=== PATIENT | male | born 1965 | race Caucasian/White ===

== ENCOUNTER → 2016-12-02 | Outpatient (CLI) | payer OTHER ==
--- NOTE | 2016-12-02 20:17 | DRAGON STRESS TEST REPORT ---
EXERCISE TREADMILL CARDIOLITE STRESS TEST USING SINGLE PHOTON EMMISION COMPUTERIZED TOMOGRAPHIC. DATE OF PROCEDURE: December 02, 2016 INDICATION : Chest pain CARDIAC RISK FACTORS: Tobacco abuse RESTING EKG: Sinus rhythm without any baseline ST-T wave changes STRESS EKG: No significant changes noted with exercise but Suboptimal heart rate response and blood pressure response REASON FOR TERMINATION: Leg discomfort and shortness of breath PROCEDURE REPORT: Baseline heart rate 78 beats per minute with blood pressure of 138/82. Patient had no significant complaints. Patient was exercised on a standard Steve protocol. Patient exercised for a total of 6 minutes and 01 second. Exercise was stopped because of right leg discomfort and also shortness of breath. Patient achieved a peak heart rate of 118 bpm which is 69 % of predicted maximum. Peak blood pressure was noted to be 150/80. Electrocardiogram obtained during exercise and at peak exercise did not show any significant ST-T wave changes. CONCLUSIONS: No significant ST segment changes noted but had marked suboptimal heart rate and also blood pressure response. Double product was also inadequate. NUCLEAR DATA: At rest the patient was given 14.36 millicuries of technetium 99 sestamibi injected intravenously. As per protocol rest gated SPECT images were obtained. At peak exercise the stress dose of 44.5 millicuries of technetium 99 sestamibi was injected intravenously, patient exercised for additional 1-2 minutes. As per protocol stress gated images were obtained. NUCLEAR INTERPRETATION: Both raw and processed data were used for interpretation. Visual, qualitative, computer-generated quantitative data was used. There was good myocardial uptake of technetium compound. Motion artifact and soft tissue attenuations were noted. Increased visceral uptake was noted. No definitive areas of transient perfusion defect noted. No definitive areas of fixed perfusion defect or scars noted. EKG gated imaging showed LV EF at 44 %, rest and stress gated EF similar visually. T. I D. ratio was 1.11. Lung heart ratio noted to be within normal limits 0.44. No significant extracardiac and abnormal radiotracer activities were noted. RV free wall uptake was noted to be WNL. IMPRESSION: Also refer to comments under nuclear interpretation. Also test results needs to be interpreted in the context of pretest probability. 1. Indeterminate nuclear stress test for ruling out ischemia or CAD. However no definitive scintigraphic myocardial ischemia, however patient had suboptimal heart rate blood pressure and double product. 2. There is no definitive scintigraphic evidence of myocardial infarction/scar. 3. EKG gated imaging shows left ejection fraction of approximately 44 %. 4. Clinical correlation requested as occasionally single vessel disease or balanced ischemia could be missed. In approximately 10% of the cases Lexiscan may not cause adequate vasodilatory stress. RECOMMENDATIONS: The test is basically indeterminate for ruling out ischemia/ CAD. Will recommend pharmacologic nuclear stress test and/or cardiac catheterization as indicated based on symptoms. Aggressive risk factor modification, medical therapy. Clinical correlation with echocardiogram derived ejection fraction. Inability to exercise by itself can lead to increased cardiovascular event risks. Consider cardiology consultation if clinically indicated. 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 [phone] [place]ITALCay[facility]
== END ==
LOC: RAD 06:43
PROVIDERS: ATTEND Family Medicine
DX: R07.9 Chest pain, unspecified (principal); I10 Essential (primary) hypertension; E78.5 Hyperlipidemia, unspecified; F17.200 Nicotine dependence, unspecified, uncomplicated
CPT/HCPCS: 93017; 78452; A9500; Q9969

== ENCOUNTER 2017-04-28 11:12 | Day surgery (SDC) | payer OTHER ==
[~2017-04-28 11:12] MED LIST: CEFAZOLIN 1 GM/D5W RTU 1 GM/50 ML RTUPB IV PRN; DEXAMETHASONE SOD PHOSPHATE INJ 4 MG/1 ML VIAL ONE; DEXTROSE 5%-1/2 NORMAL SALINE 1,000 ML IV PRN; LIDOCAINE 2% INJ-PF (20 MG/ML) 10 ML AMPUL ONE; METOCLOPRAMIDE HCL INJ/PF 10 MG/2 ML SDV ONE; ONDANSETRON HCL INJ/PF 4 MG/2 ML SDV ONE; SUCCINYLCHOLINE CHLORIDE INJ 200 MG/10 ML VIAL ONE
[2017-04-28 12:13] LABS: HEMATOCRIT 48.4 % (37.9-51.0); HEMOGLOBIN 16.4 g/dL (13.5-17.0); HGB HCT DIFFERENCE 0.8; MEAN CORPUSCULAR HEMOGLOBIN 29.8 pg (27.0-33.4); MEAN CORPUSCULAR HGB CONC 33.9 g/dL (32.0-36.0); MEAN CORPUSCULAR VOLUME 88 fl (80-97); RED BLOOD COUNT 5.51 10^6/uL (4.35-5.55); RED CELL DISTRIBUTION WIDTH 13.7 % (11.5-14.0); WHITE BLOOD COUNT 8.2 10^3/uL (4.0-10.5)
[2017-04-28 12:27] LABS: ANION GAP 12 (5-19); BLOOD UREA NITROGEN 18 mg/dL (7-20); CALCIUM 9.4 mg/dL (8.4-10.2); CARBON DIOXIDE 23 mmol/L (22-30); CHLORIDE 105 mmol/L (98-107); GLUCOSE 91 mg/dL (75-110); POTASSIUM 4.2 mmol/L (3.6-5.0); SODIUM 139.7 mmol/L (137-145)
[2017-04-28] MEDS ORDERED: BUPIVACAINE HCL 0.25 % INJ/PF (2.5 MG/1 ML) 30 ML VIAL ONE (12:35)
[2017-04-28] MEDS ORDERED: BACITRACIN INJ 50,000 UNIT VIAL ONE (12:35)
[2017-04-28] MEDS ORDERED: LIDOCAINE 0.5% INJ-PF (5 MG/ML) 50 ML SDV ONE (12:35)
[2017-04-28] MEDS ORDERED: PROPOFOL INJ 200 MG/20 ML VIAL IV ONE (12:54)
[2017-04-28] MEDS ORDERED: IBUPROFEN INJ 800 MG/8 ML VIAL IV ONE (12:54)
[2017-04-28] MEDS ORDERED: MIDAZOLAM 2 MG/2 ML INJ ONE (12:54)
[2017-04-28] MEDS ORDERED: HYDROMORPHONE HCL INJ/PF 2 MG/ML AMPULE ONE (12:54)
[2017-04-28] MEDS ORDERED: ACETAMINOPHEN 100 ML IV ONE (12:54)
[2017-04-28] MEDS ORDERED: EPHEDRINE SULFATE INJ 50 MG/1 ML AMPULE ONE (13:58)
[2017-04-28] MEDS ORDERED: FENTANYL CITRATE INJ/PF 100 MCG/2 ML AMPUL ONE (14:14)
[2017-04-28] MEDS ORDERED: OXYCODONE-ACETAMINOPHEN 5-325 MG TABLET PO PRN ×4 (14:18→15:07)
[2017-04-28] MEDS ORDERED: MEPERIDINE HCL/PF INJ 25 MG/1 ML DISP.SYRIN IV PRN (14:18)
[2017-04-28] MEDS ORDERED: PROMETHAZINE HCL INJ 25 MG/1 ML VIAL IV PRN ×2 (14:18)
[2017-04-28] MEDS ORDERED: ONDANSETRON HCL INJ/PF 4 MG/2 ML SDV IV PRN (14:18)
[2017-04-28] MEDS ORDERED: DIPHENHYDRAMINE HCL 50 MG/ML VIAL IV PRN (14:18)
[2017-04-28] MEDS ORDERED: FENTANYL CITRATE INJ/PF 100 MCG/2 ML AMPUL IV PRN ×3 (14:18)
[2017-04-28] MEDS ORDERED: MORPHINE SULFATE 10 MG/ML INJ IV PRN (14:18)
--- NOTE | 2017-04-28 14:41 | PDOC DISCHARGE SUMMARY ---
Discharge Summary (SDC) - Discharge Final Diagnosis: Symptomatic left inguinal hernia. 2. Tobacco use disorder. 3 myocardial infarction Date of Surgery: 04/28/17 Discharge Date: 04/28/17 Condition: Good Treatment or Instructions: Discharge home [after recovery per ASU criteria]. Diet , as tolerated, when fully awake advance as tolerated. Activities within moderation encouraged. Walking encouraged. No lifting over 10 pounds Follow up in my office by appointment in about [1 week]. Call for appointment. Leave wounds [covered], [keep clean and dry, until office visit in 1 week]. Hold of on school/work [until evaluation in office]. May shower [in 48 hrs], [try to keep operated area as dry as possible]. Medications per medication reconciliation sheet Percocet and Toradol Prescriptions: Ketorolac Tromethamine [Toradol 10 mg Tablet] 10 mg PO Q8HP PRN #9 tablet PRN Reason: Oxycodone HCl/Acetaminophen [Percocet 5-325 mg Tablet] 1 tab PO ASDIR PRN #15 tab PRN Reason: Discharge Diet: As Tolerated Respiratory Treatments at Home: Deep Breathing/Coughing, Incentive Spirometer Discharge Activity: No Lifting Over 10 Pounds, Walk Frequently Report the Following to Your Physician Immediately: Shortness of Breath, Unusual Bleeding
--- NOTE | 2017-04-28 14:45 | Operative Report ---
Operative Report DATE OF SURGERY: 04/28/17 PREOPERATIVE DIAGNOSIS: Symptomatic left inguinal hernia. 2. Tobacco use disorder. 3 myocardial infarction POSTOPERATIVE DIAGNOSIS: Symptomatic left inguinal hernia. Direct, reducible. 2. Tobacco use disorder. 3 myocardial infarction OPERATION: Repair of left inguinal hernia with mesh SURGEON: ANTONELLA CIFUENTES ACCOUNTS PAYABLE COORDINATOR: None ANESTHESIA: GA TISSUE REMOVED OR ALTERED: Not applicable. COMPLICATIONS: None ESTIMATED BLOOD LOSS: 10 mL INTRAOPERATIVE FINDINGS: Of a reducible left indirect inguinal hernia. The sac was nicely reduced and the sustained with preperitoneal mesh. The ilioinguinal nerve was identified and locally anesthetized. Preserved. No direct or femoral components noted. PROCEDURE: After obtaining informed consent and going over the procedure with [the patient and his family], he was taken to the operating room, he was anesthetized and intubated. The abdomen was prepped and draped in the usual sterile fashion. After the universal timeout, in which it was verified that the patient received IV antibiotic, the procedure commenced. A transverse incision was made in the left t lower abdomen abdominal, groin area , just above the pubic tubercle. 6 cm in length.Local, regional anesthesia was infiltrated, just before incision.. Incision was made with a [15 blade scalpel] . Dissection now proceeded through the subcutaneous tissue down to the external oblique aponeurosis. The external ring was identified and the external oblique opened in the line of its fibers. The inguinal canal was thus displayed. Dissection was facilitated by the use a headlight and using loupe magnification. The spermatic cord was dissected off the pubic tubercle and surrounded with a moist Gail drain, the cremasteric fascia was now incised longitudinally revealing the contents of the spermatic cord. The sac was readily evident and this was grasped with a hemostat. It was now dissected in a retrograde fashion into the retroperitoneal space. It was now reduced within the the preperitoneal space. The preperitoneal space was now developed circumferentially. It easily accommodated a sponge which was removed. Hemostasis was checked for and ensured there in. The space between the external and internal oblique aponeuroses was now developed to accommodate the external portion of the mesh. Having done so a Prolene hernia system mesh was now folded, in the burner technician's approved fashion and inserted into the preperitoneal space. The internal portion was deployed flat in the preperitoneal space the external portion was unfolded and tucked beneath the external oblique. Secured with a 0 PDS suture to the internal oblique superiorly, the fascia adjacent to the pubic tubercle medially, inferiorly it was split up to the connector, the the split mesh was now used to surround the spermatic cord. It was reapproximated with a suture of 0 PDS. 0 PDS was now used to approximate the inferior border of the mesh to the shelving edge of Poupart's ligament with a single suture. Laterally the mesh was tucked beneath the external oblique. The external oblique was now reconstituted using a continuous suture of 3-0 PDS. 3-0 PDS interrupted sutures were used to approximate the subcutaneous tissues after removing the [place] drain. The skin was closed using a continuous subcuticular suture of 4-0 Monocryl reinforced with Steri-Strips over benzoin. Copies dictated operative report to Dr. Antonella Ly MD.
[2017-04-28 18:55] VITALS: BP 129/94
--- NOTE | 2017-04-28 23:45 | EKG REPORT ---
SEVERITY:- NORMAL ECG - SINUS RHYTHM : Confirmed by: Jose E Casas 28-Apr-2017 23:44:51
== END 2017-04-28 17:10 | disposition home or self-care (01) ==
LOC: OROUT 11:12
PROVIDERS: ATTEND Surgery
PROC: 0YU60JZ Supplement Left Inguinal Region with Synthetic Substitute, Open Approach (ICD-10-PCS; principal; 2017-04-28 13:15)
DX: K40.90 Unilateral inguinal hernia, without obstruction or gangrene, not specified as recurrent (principal); F17.210 Nicotine dependence, cigarettes, uncomplicated; I73.9 Peripheral vascular disease, unspecified; K21.9 Gastro-esophageal reflux disease without esophagitis; I25.2 Old myocardial infarction; Z79.899 Other long term (current) drug therapy; Z79.1 Long term (current) use of non-steroidal anti-inflammatories (NSAID)
CPT/HCPCS: 36415; 85027; 80048; 93005; 93010; 49505; C1781; J2250; J3490 ×4; J0690; J1100; J3010; J2765; J1170; J0330; J2405; J2704; J0131; J1741; 830

== ENCOUNTER 2020-09-21 10:20 | Outpatient (CLI) | payer SELFPAY ==
[~2020-09-21 10:20] MED LIST changes: -CEFAZOLIN 1 GM/D5W RTU 1 GM/50 ML RTUPB IV PRN; +CISPLATIN 86 MG in NORMAL SALINE 500 ML IV PRN; -DEXAMETHASONE SOD PHOSPHATE INJ 4 MG/1 ML VIAL ONE; -DEXTROSE 5%-1/2 NORMAL SALINE 1,000 ML IV PRN; +FOSAPREPITANT 150 MG in NS 150 ML IV PRN; +FUROSEMIDE INJ/PF 20 MG/2 ML SDV IV PRN; -LIDOCAINE 2% INJ-PF (20 MG/ML) 10 ML AMPUL ONE; -METOCLOPRAMIDE HCL INJ/PF 10 MG/2 ML SDV ONE; +NORMAL SALINE 500 ML @ KVO IV PRN; -ONDANSETRON HCL INJ/PF 4 MG/2 ML SDV ONE; +PALONOSETRON 0.25 MG/5 ML VIAL IV PRN; -SUCCINYLCHOLINE CHLORIDE INJ 200 MG/10 ML VIAL ONE
[2020-09-21] MEDS: DEXAMETHASONE 10 MG in NS 50 ML IV PRN ×2 (11:02→11:12)
[2020-09-21 11:10] VITALS: BP 140/75
== END 2020-09-21 14:41 | disposition home or self-care (01) ==
LOC: II 10:20 → 5TH 10:23 → II 14:41
PROVIDERS: ATTEND Internal Medicine
DX: Z51.11 Encounter for antineoplastic chemotherapy (principal); C09.0 Malignant neoplasm of tonsillar fossa
CPT/HCPCS: 96367; 96375; 96413; J1100; J1453; J1940; J2469; J7040; J7050; J9060

== ENCOUNTER 2020-09-28 10:01 | Outpatient (CLI) | payer OTHER ==
[~2020-09-28 10:01] MED LIST changes: +DEXAMETHASONE 10 MG in NS 50 ML IV PRN
[2020-09-28 10:37] VITALS: BP 147/81
== END 2020-09-28 14:00 | disposition home or self-care (01) ==
LOC: II 10:01 → 5TH 10:05 → II 14:00
PROVIDERS: ATTEND Internal Medicine
DX: Z51.11 Encounter for antineoplastic chemotherapy (principal); C09.0 Malignant neoplasm of tonsillar fossa
CPT/HCPCS: 96413; 96367; 96375; J9060; J1940; J7050; J7040; J1100; J1453; J2469

== ENCOUNTER 2020-10-05 09:19 | Outpatient (CLI) | payer OTHER ==
[~2020-10-05 09:19] MED LIST changes: -DEXAMETHASONE 10 MG in NS 50 ML IV PRN; +DEXAMETHASONE SOD PHOSPHATE 10 MG in NORMAL SALINE 50 ML IV PRN; -FOSAPREPITANT 150 MG in NS 150 ML IV PRN; +FOSAPREPITANT DIMEGLUMINE 150 MG in NORMAL SALINE 150 ML IV PRN; -NORMAL SALINE 500 ML @ KVO IV PRN; +NORMAL SALINE 500 ML IV PRN; +PALONOSETRON 0.25 MG/5 ML SDV IV PRN; -PALONOSETRON 0.25 MG/5 ML VIAL IV PRN
[2020-10-05 09:49] VITALS: BP 122/74
== END 2020-10-05 12:56 | disposition home or self-care (01) ==
LOC: II 09:19 → 5TH 09:20 → II 12:56
PROVIDERS: ATTEND Internal Medicine Hematology & Oncology
DX: Z51.11 Encounter for antineoplastic chemotherapy (principal); C09.0 Malignant neoplasm of tonsillar fossa
CPT/HCPCS: 96413; 96367; 96375; J9060; J1940; J7050; J7040; J1100; J1453; J2469

== ENCOUNTER 2020-10-19 08:57 | Outpatient (CLI) | payer OTHER ==
[~2020-10-19 08:57] MED LIST changes: -CISPLATIN 86 MG in NORMAL SALINE 500 ML IV PRN; +CISPLATIN IV PRN; +FOSAPREPITANT 150 MG in NS 150 ML IV PRN; +NORMAL SALINE IV PRN
[2020-10-19] MEDS ORDERED: NORMAL SALINE 1000 ML 1,000 ML IV PRN (10:00)
[2020-10-19 10:04] VITALS: BP 101/75
== END 2020-10-19 12:43 | disposition home or self-care (01) ==
LOC: II 08:57 → 5TH 09:57 → II 12:43
PROVIDERS: ATTEND Internal Medicine Hematology & Oncology
DX: Z51.11 Encounter for antineoplastic chemotherapy (principal); C09.0 Malignant neoplasm of tonsillar fossa
CPT/HCPCS: 96413; 96415; 96367; 96375; J9060; J1940; J7050; J7040; J1100; J1453; J2469

== ENCOUNTER 2020-10-30 09:05 | Outpatient (CLI) | payer OTHER ==
[~2020-10-30 09:05] MED LIST changes: +DEXAMETHASONE 10 MG in NS 50 ML IV PRN; -DEXAMETHASONE SOD PHOSPHATE 10 MG in NORMAL SALINE 50 ML IV PRN; -FOSAPREPITANT DIMEGLUMINE 150 MG in NORMAL SALINE 150 ML IV PRN; +NORMAL SALINE 1000 ML @ AS DIRECTED IV PRN; -NORMAL SALINE 500 ML IV PRN; -PALONOSETRON 0.25 MG/5 ML SDV IV PRN; +PALONOSETRON 0.25 MG/5 ML VIAL IV PRN
[2020-10-30 09:52] VITALS: BP 117/66
== END 2020-10-30 13:00 | disposition home or self-care (01) ==
LOC: II 09:05 → 5TH 09:07 → II 13:00
PROVIDERS: ATTEND Internal Medicine Hematology & Oncology
DX: Z51.11 Encounter for antineoplastic chemotherapy (principal); C09.0 Malignant neoplasm of tonsillar fossa
CPT/HCPCS: 96413; 96367; 96375; J9060; J1940; J7050; J7040; J1100; J1453; J2469

== ENCOUNTER 2020-11-06 09:06 | Outpatient (CLI) | payer OTHER ==
[2020-11-06 09:52] VITALS: BP 114/66
== END 2020-11-06 13:46 | disposition home or self-care (01) ==
LOC: II 09:06 → 5TH 09:39 → II 13:46
PROVIDERS: ATTEND Internal Medicine Hematology & Oncology
DX: Z51.11 Encounter for antineoplastic chemotherapy (principal); C09.0 Malignant neoplasm of tonsillar fossa
CPT/HCPCS: 96413; 96367; 96375; J9060; J7050; J7040; J1100; J1453; J2469

== ENCOUNTER → 2020-11-09 | Outpatient (CLI) | payer BC, OTHER ==
--- NOTE | 2020-11-09 15:36 | RADIOLOGY REPORT (SQ) ---
EXAM DESCRIPTION: VENOUS BILATERAL UPPER IMAGES COMPLETED DATE/TIME: 11/09/2020 3:04 pm REASON FOR STUDY: SWELLING R22.33 LOCALIZED SWELLING, MASS AND LUMP, UPPER LIMB, BILATE COMPARISON: None. TECHNIQUE: Dynamic and static alvarez scale and color images acquired of the right and left arm venous system. Selected spectral images acquired with additional compression and augmentation maneuvers. The contralateral subclavian vein and internal jugular vein were also imaged. Images stored on PACS. LIMITATIONS: None. FINDINGS: RIGHT: INTERNAL JUGULAR VEIN: Normal phasicity, compression, augmentation. No visualized echogenic material on alvarez scale. No defects on color images. Comparison opposite side normal. SUBCLAVIAN VEIN: Normal compression, augmentation. No visualized echogenic material on alvarez scale. No defects on color images. AXILLARY VEIN: Normal compression, augmentation. No visualized echogenic material on alvarez scale. No d efects on color images. BRACHIAL VEIN: Normal compression, augmentation. No visualized echogenic material on alvarez scale. No d efects on color images. BASILIC VEIN: Normal compression, augmentation. No visualized echogenic material on alvarez scale. No de fects on color images. CEPHALIC VEIN: Decreased compressibility with intraluminal defect on grayscale compatible with acute thrombus from the level of the wrist to the shoulder. OTHER: No other significant finding. LEFT: INTERNAL JUGULAR VEIN: Normal phasicity, compression, augmentation. No visualized echogenic material on alvarez scale. No defects on color images. Comparison opposite side normal. SUBCLAVIAN VEIN: Normal compression, augmentation. No visualized echogenic material on alvarez scale. No defects on color images. AXILLARY VEIN: Normal compression, augmentation. No visualized echogenic material on alvarez scale. No d efects on color images. BRACHIAL VEIN: Normal compression, augmentation. No visualized echogenic material on alvarez scale. No d efects on color images. BASILIC VEIN: Decreased compressibility and intraluminal material within the basilic brain from the w rist to the tracheal junction. CEPHALIC VEIN: Decreased compressibility with intraluminal defect within the cephalic vein from the w rist to the upper forearm. OTHER: No other significant finding. IMPRESSION: 1. No evidence of DVT within either upper extremity. 2. SVT within the bilateral cephalic veins and left basilic vein as above. TECHNICAL DOCUMENTATION: JOB ID: [id number] [employer]- All Rights Reserved Reading location - IP/workstation name: [email or web address]
== END ==
LOC: RAD 12:58
PROVIDERS: ATTEND Physician Assistant Medical
DX: I82.612 Acute embolism and thrombosis of superficial veins of left upper extremity (principal)
CPT/HCPCS: 93970